=== PATIENT | female | born 1960 | race Caucasian/White ===

== ENCOUNTER 2023-09-01 18:02 | Emergency (ER) | payer MEDICARE ==
[~2023-09-01] VITALS: Ht 170.2 cm; Wt 48.8 kg
--- NOTE | 2023-09-01 19:36 | NUR ---
PT STATES, "COULD BE HEMMOHOIDS BUT DOESNT KNOW IF BLEEDING IS COMING FROM INTERNAL OR EXTERNAL." BLEEDING STARTED A COUPLE MONTHS AGO. TAKES 12-24 HRS TO SOAK A PAD.
--- NOTE | 2023-09-01 19:50 | NUR ---
Home calloway in EDM - 09/01/23 at 2007 by PAULINA PT STATES, "MY STOOLS ARE REGULAR, THAT JUST HARD AND I HAVE TO PUSH".
--- NOTE | 2023-09-01 20:06 | NUR ---
PT STATES, "MY STOOLS ARE REGULAR THEY'RE JUST HARD AND I HAVE TO PUSH"
[2023-09-01] MEDS ORDERED: HYDR25SU32 RC (20:36)
[2023-09-01] MEDS ORDERED: hydrocortisone acetate 25mg rectal suppository RC PRN (20:40)
[2023-09-01 21:20] VITALS: BP 134/86; PULSE 70; RESP 16; TEMP 98.6; O2SAT 98
== END 2023-09-01 21:23 | disposition home or self-care (01) ==
LOC: ER 18:03
DX: K62.5 Hemorrhage of anus and rectum (principal); K64.9 Unspecified hemorrhoids
CPT/HCPCS: 99284

== ENCOUNTER 2024-02-04 18:57 | Emergency (ER) | payer MEDICARE ==
[~2024-02-04] VITALS: Ht 170.2 cm; Wt 63.0 kg
[~2024-02-04 18:57] MED LIST: HYDR25SU32 RC
[2024-02-04 19:02] VITALS: TEMP 98.2
[2024-02-04] MEDS: amox tr/potassium clavulanate 875/125mg TAB PO ONE (20:03)
[2024-02-04] MEDS: HYDROcodone/acetaminophen 5mg/325mg tablet PO ONE (20:03)
[2024-02-04 20:30] LABS: BASOPHILS % (AUTO) 0.9 % (0-1); EOSINOPHILS # (AUTO) 0.1 X10'3 (0-0.9); EOSINOPHILS % (AUTO) 2.2 % (0-6); HEMATOCRIT 32.1 % (35.0-45.0); HEMOGLOBIN 11.1 g/dl (12.0-16.0); LYMPHOCYTES # (AUTO) 1.5 X10'3 (1.1-4.8); LYMPHOCYTES % (AUTO) 26.1 % (21-51); MEAN CORPUSCULAR HEMOGLOBIN 28.9 PG (27.0-31.0); MEAN CORPUSCULAR HGB CONC 34.4 g/dL (33.0-36.5); MEAN PLATELET VOLUME 6.8 FL (7.4-10.4); MONOCYTES # (AUTO) 0.5 X10'3 (0-0.9); MONOCYTES % (AUTO) 8.7 % (2-12); NEUTROPHILS # (AUTO) 3.6 X10'3 (1.8-7.7); NEUTROPHILS % (AUTO) 62.1 % (42-75); PLATELET COUNT 298 X10'3 (140-440); RED BLOOD COUNT 3.83 X10'6 (4.20-5.60); RED CELL DISTRIBUTION WIDTH 14.1 % (11.5-14.5); WHITE BLOOD COUNT 5.8 X10'3 (4.5-11.0)
[2024-02-04 21:06] LABS: PROTHROMBIN TIME 11.2 SECONDS (9.0-12.0)
[2024-02-04] MEDS: bacitracin 15gm ointment TP ONE (21:16)
[2024-02-04] MEDS ORDERED: HYDR-3965 PO (21:21)
[2024-02-04] MEDS ORDERED: AMOX-117 PO (21:21)
[2024-02-04 22:00] VITALS: BP 119/66; PULSE 83; RESP 15; O2SAT 94
== END 2024-02-04 22:48 | disposition home or self-care (01) ==
LOC: ER 18:58
DX: T14.8XXA Other injury of unspecified body region, initial encounter (principal); K60.2 Anal fissure, unspecified; Z79.2 Long term (current) use of antibiotics; Z79.899 Other long term (current) drug therapy; X58.XXXA Exposure to other specified factors, initial encounter; Y93.89 Activity, other specified; Y92.89 Other specified places as the place of occurrence of the external cause; Y99.8 Other external cause status
CPT/HCPCS: 36415; 85025; 85610; 99284; J7030; A6258